=== PATIENT | female | born 1970 | race Caucasian/White ===

== ENCOUNTER 2023-07-26 11:54 | Emergency (ER) | payer MEDICARE, MEDICAID, SELFPAY ==
[2023-07-26 12:02] VITALS: BP 151/80; PULSE 109; RESP 20; TEMP 36.3; O2SAT 99
--- NOTE | 2023-07-26 12:07 | ED.GENADULT ---
HPI - General Adult General Chief complaint: Extremity Injury, Lower Stated complaint: Fall Injury/Right Hip Source: patient and RN notes reviewed History of Present Illness HPI narrative: 53 yo F presents to urgent care with complaints of right hip pain. Pt states on Friday, she slippled off a stepstool that was approximately 2 ft high, but landed on her feet. Pt denies falling to the ground at all but states she felt something in her right hip at the time. Pt states she was sitting style after this for about 15 min and when she went to get up, she was having worse right hip pain. Pt reports associated numbness in her right toes. Denies any other symptoms. Pt states she was taking her Vicodin that she was given at the ED a couple weeks ago but has run out. Related Data Home Medications Medication Instructions Recorded Confirmed amlodipine 2.5 mg tablet mg 07/26/23 benztropine 2 mg tablet mg 07/26/23 buspirone 30 mg tablet mg 07/26/23 cyclobenzaprine 10 mg tablet mg 07/26/23 hydroxyzine pamoate 50 mg capsule mg 07/26/23 levothyroxine 75 mcg tablet mcg 07/26/23 (Synthroid) pantoprazole 40 mg tablet,delayed mg PO 07/26/23 release Allergies Allergy/AdvReac Type Severity Reaction Status Date / Time ketorolac Allergy Severe Hives / Unverified 10/15/13 11:52 Red Face meperidine Allergy Severe Hives / Unverified 10/15/13 11:52 Red Face acetaminophen Allergy Mild STOMACH Unverified 10/15/13 11:52 PAIN--HX ULCERS aspirin Allergy Mild HX Unverified 10/15/13 11:52 BLEEDING ULCER propoxyphene Allergy Mild STOMACH Unverified 10/15/13 11:52 PAIN--HX ULCERS gabapentin Allergy Verified 10/15/13 13:10 ibuprofen Allergy Verified 10/15/13 13:10 tramadol Allergy Verified 10/15/13 11:55 Review of Systems Review of Systems: CONSTITUTIONAL: Denies fever, chills, or sweats. EYES: Denies visual changes, redness, or discharge. ENT: Denies otalgia and sore throat CARDIOVASCULAR: Denies chest pain, palpitations, or edema. RESPIRATORY: Denies cough or dyspnea. GASTROINTESTINAL: Denies abdominal pain, nausea, vomiting, or diarrhea. GENITOURINARY: Denies dysuria or hematuria. SKIN: Denies rash or itching. MUSCULOSKELETAL: Right hip pain that radiates down front and side of right thigh NEUROLOGIC: Denies headache, numbness, or weakness. PMFSH Comments At the time of my signature, I reviewed and agree with the nursing past medical, surgical, social, and family history. There is no relevant family history pertinent to the patient complaint. Exam Narrative: GENERAL: This is a well-nourished, well-developed patient, in no apparent distress. HEAD: normocephalic, atraumatic. EYES: Sclera clear/white. Vision is grossly intact. EARS: External ears normal, auditory canals clear and without drainage. Hearing grossly intact. NOSE: External nose normal with no obvious nasal discharge, nares without redness, no rhinorrhea. NECK: Neck supple, non-tender without lymphadenopathy, masses or thyromegaly. CARDIOVASCULAR: Regular rate RESPIRATORY: No respiratory distress SKIN: warm, intact with no suspicious lesions or rash, good texture and turgor. NEURO: awake, alert, and oriented to person, place and time. There were no obvious focal neurologic abnormalities. EXTREMITIES: No clubbing, cyanosis, or edema. Pt reports tenderness to right lateral hip, right anterior thigh, and right lateral thigh. BACK: Nontender without deformity or crepitus. No flank tenderness. Course Course Level of Care: Express Care Visit Vital Signs Vital signs: Vital Signs Temperature 97.4 F L 07/26/23 12:02 Pulse Rate 109 H 07/26/23 12:02 Respiratory Rate 20 07/26/23 12:02 Blood Pressure 151/80 H 07/26/23 12:02 Pulse Oximetry 99 07/26/23 12:02 Oxygen Delivery Room Air 07/26/23 12:02 Temperature 97.4 F L 07/26/23 12:02 Pulse Rate 109 H 07/26/23 12:02 Respiratory R
== END 2023-07-26 12:19 | disposition home or self-care (01) ==
PROVIDERS: Emergency Provider Nurse Practitioner Family; PCP Internal Medicine
DX: M76.31 Iliotibial band syndrome, right leg (principal); I10 Essential (primary) hypertension; E03.9 Hypothyroidism, unspecified; Z98.84 Bariatric surgery status
CPT/HCPCS: 99203; G0463